=== PATIENT | male | born 1965 | race Caucasian/White ===

== ENCOUNTER → 2024-04-11 16:03 | Outpatient (REF) | payer OTHER, SELFPAY | LOC: RAD 16:03 | PROVIDERS: ATTENDING PHYSICIAN Family Medicine | DX: M25.512 Pain in left shoulder (principal) | CPT/HCPCS: 73030 ==

== ENCOUNTER → 2024-09-13 09:23 | Outpatient (REF) | payer OTHER, SELFPAY | LOC: RAD 09:23 | PROVIDERS: ATTENDING PHYSICIAN Family Medicine | DX: R06.02 Shortness of breath (principal) | CPT/HCPCS: 71046 ==

== ENCOUNTER 2024-09-15 16:27 | Emergency (ER) | payer OTHER, SELFPAY ==
[2024-09-15 16:33] VITALS: BP 131/81
--- NOTE | 2024-09-15 18:00 | ED.GENMED ---
History of Present Illness
General
Chief Complaint: Skin Problem
Time Seen by Provider: 09/15/24 17:36
History of Present Illness
History of Present Illness:
5-year-old male presenting with finger laceration. Patient states that he was washing a sketch maker knife and accidentally cut the distal aspect of his right pinky finger. Patient states he controlled bleeding with pressure, applying a string as a
tourniquet, and elevating above his head. Tetanus unknown. Patient reports slight numbness to the distal aspect of his finger but no weakness.
Past History
Past History
ED Past Medical History: Other (Cluster headaches), Other (Low back issues) and Other (GERD)
Social History
Tobacco: Former smoker
Alcohol: None
Personal:
Living: with family
Employment: Retired (In my [employer])
Family History
Family History: Negative Diabetes, Hypertension or CAD
Phy Exam
Physical Exam
Physical Exam:
Right hand: 2cm laceration to distal phalanx right 5th finger, no active bleeding. FROM right PIP and DIP. 2+ right radial pulse. neurovascularly intact
Course
Orders/Labs/Results
Orders:
Orders
09/15/24 18:05
Tetanus/Diphth/Acelpertussis [Adacel] 0.5 ml IM .ONCE ONE
Vital Signs
Initial and Last Documented VS:
Initial Vital Signs
Temp Pulse Resp BP Pulse Ox
98.1 F 92 20 131/81 99
09/15/24 16:33 09/15/24 16:33 09/15/24 16:33 09/15/24 16:33 09/15/24 16:33
Last Documented Vital Signs
Temp Pulse Resp BP Pulse Ox
98.1 F 92 20 131/81 99
09/15/24 16:33 09/15/24 16:33 09/15/24 16:33 09/15/24 16:33 09/15/24 16:33
Procedures
Laceration Closure
Right Distal Dorsal Fifth Finger:
Status of Wound: clean
Size of Wound in cm: 2
Description of Wound Edges: sharp
Preparation: cleaned with saline
Anesthesia: 1% Lidocaine
Revision/Debridement: routine- no revision
Type of Closure: single layer closure
Skin Closure Material: 5-0 nylon
Number of sutures: 4
Additional information:
applied topical antibiotic ointment and bandaid to wound
MDM/Problems Addressed
MDM/Problems Addressed:
59-year-old male presenting with right finger laceration. Updated tetanus, repaired laceration. No complications. Stable for discharge with PCP follow-up for suture removal
*Critical Care Note
Total Time (30-74mins, 75-104mins- exclusive of procedures): Not Applicable
ED Attending Note
-
Portions of this chart may have been created with voice recognition software.� Occasional wrong word or��sound alike� substitutions may have occurred due to the inherent limitations of voice recognition software.
Discharge Plan
Departure
Patient Disposition: Home (Routine Discharge)
Date of Disposition: 09/15/24
Time of Disposition: 18:05
Patient with high blood pressure during this ER visit?: Yes
Discharge Problem:
Finger laceration
Instructions: BLOOD PRESSURE
Prescriptions:
No Action
desloratadine [Clarinex] 5 MG tablet
5 mg PO DAILY
ondansetron 4 MG tablet,disintegrating
4 mg PO TIDPRN PRN (Reason: NAUSEA) Qty: 6 1RF
omeprazole 40 MG capsule,delayed release(DR/EC)
40 mg PO DAILY
zhrjcpvpmc-xsxarlvuzftfu-furg 1 EACH tablet
1 ea PO PRN PRN (Reason: headache-migraine,cluster)
hyoscyamine sulfate 0.125 MG tablet, sublingual
0.125 mg sublingual PRN PRN (Reason: stomache discomfort)
frovatriptan [Frova] 2.5 MG tablet
2.5 mg PO PRN PRN (Reason: headache)
diazepam 10 MG tablet
10 mg PO PRN PRN (Reason: anxiety)
oxycodone 5 MG tablet
5 mg PO Q4HPRN PRN (Reason: back pain)
tadalafil [Cialis] 10 MG tablet
10 mg PO PRN PRN (Reason: ed)
cholecalciferol (vitamin D3) [Vitamin D3] 2,000 UNIT capsule
2,000 unit PO DAILY
hydrocodone bitartrate [Hysingla ER] 60 MG tablet,oral only,ext.rel.24 hr
60 mg PO DAILY
amitriptyline 25 MG tablet
25 mg PO HS Qty: 30 0RF
promethazine 25 MG tablet
25 mg PO Q6HPRN PRN (Reason: nausea) Qty: 15 0RF
Referrals:
Tj España DO [Family Provider] -
Activity Restrictions/Additional Instructions:
Follow-up with primary care doctor, go to urgent care, or return to the emergency department in 1 week for suture removal. There are 4 black sutures that need to be removed
Keep area dry and clean for first 24 hours. Starting tomorrow you may wash area gently with soap and water. Do not soak. Apply topical antibiotic ointment and Band-Aid daily
Return to the emergency department sooner for new/worsening symptoms
Interventions
Interventions:
*Risk Screen - Suicide Last Done: 09/15/24 18:40
*General Assessment Last Done: 09/15/24 16:33
*Neglect/Abuse Screening Last Done: 09/15/24 18:40
*ED- Fall Risk Assessment Last Done: 09/15/24 18:40
*ED COVID-19 Vaccine History Last Done: 09/15/24 18:40
*Nursing Disposition Last Done: 09/15/24 18:34
ED-Skin Assessment Last Done: 09/15/24 18:32
Discharge Date and Time
Discharge Date/Time: 09/15/24 18:41
Print Language: BURUNDIAN
[2024-09-15] MEDS: ADACEL 0.5 ML IM (18:26)
== END 2024-09-15 18:41 | disposition home or self-care (01) ==
LOC: EMR 16:27
PROVIDERS: EMERGENCY PHYSICIAN Emergency Medicine; FAMILY PHYSICIAN Family Medicine
DX: S61.216A Laceration without foreign body of right little finger without damage to nail, initial encounter (principal); W26.0XXA Contact with knife, initial encounter; Z87.891 Personal history of nicotine dependence; Z23 Encounter for immunization
CPT/HCPCS: 12001; 90471; 99282; 90715

== ENCOUNTER → 2024-09-29 14:52 | Outpatient (REF) | payer OTHER, SELFPAY | LOC: HWRAD 14:52 | PROVIDERS: ATTENDING PHYSICIAN Family Medicine | DX: Z87.891 Personal history of nicotine dependence (principal) | CPT/HCPCS: 71271 ==

== ENCOUNTER → 2024-11-07 14:32 | Outpatient (REF) | payer SELFPAY | LOC: RAD 14:32 | PROVIDERS: ATTENDING PHYSICIAN Family Medicine | DX: Z13.6 Encounter for screening for cardiovascular disorders (principal) | CPT/HCPCS: 75571 ==

== ENCOUNTER 2024-11-10 18:04 | Observation (INO) | payer OTHER, SELFPAY ==
[2024-11-10 13:36] VITALS: BP 125/55
[2024-11-10 14:00] LABS: % Basophils 1.4 % (0-2); % Immature Granulocytes 0.2 % (0-0.5); % Lymphocytes 44.6 % (20.5-51.1); % Monocytes 5.7 % (1.7-9.3); % Neutrophils 46.1 % (42.2-75.2); Absolute Basophils 0.1 10^3/uL (0-0.2); Absolute Eosinophils 0.1 10^3/uL (0-0.7); Absolute Lymphocytes 2.2 10^3/uL (1.2-3.4); Absolute Monocytes 0.3 10^3/uL (0.1-0.6); Absolute Neutrophils 2.3 10^3/uL (1.4-6.5); Hematocrit 28.3 % (39.0-52.0); Hemoglobin 10.1 g/dL (13.0-18.0); Mean Corp Hgb Conc. 35.7 g/dL (33.0-37.0); Mean Corpuscular Hgb 38.8 pg (27.0-31.0); Mean Corpuscular Volume 108.8 fL (80.0-94.0); Mean Platelet Volume 9.8 fL (7.4-10.4); Nucleated Red Blood Cells % 0 % (-); Platelet Count 237 10^3/uL (130-400); Red Cell Dist. Width 16.7 % (11.5-14.5)
[2024-11-10 14:19] LABS: ALT (SGPT) 12 U/L (0-50); AST (SGOT) 19 U/L (17-59); Albumin 4.9 g/dl (3.5-5.0); Alkaline Phosphatase 37 U/L (38-126); Blood Urea Nitrogen 18 mg/dl (9-20); Calcium 9.4 mg/dl (8.4-10.2); Carbon Dioxide 25 mmol/L (22-30); Chloride 106 mmol/L (98-107); Glucose 120 mg/dl (70-99); Potassium 4.1 mmol/L (3.5-5.1); Sodium 140 mmol/L (135-145); Total Protein 7.2 g/dl (6.3-8.2); eGFR > 60.00
[2024-11-10 14:29] LABS: Troponin I < 0.012 ng/ml
[2024-11-10 16:15] VITALS: BP 118/65; BMI 23.9
--- NOTE | 2024-11-10 16:49 | ED.GENMED ---
History of Present Illness
General
Chief Complaint: Chest Pain
Source: patient
Exam Limitations: none
Time Seen by Provider: 11/10/24 15:44
History of Present Illness
History of Present Illness:
Since last evening patient has had intermittent episodes of left upper chest tightness with radiation of the shoulder. Not exertional. At times last seconds but at times last minutes. No shortness of breath radiation of the back nausea or
diaphoresis.
Past History
Past History
ED Past Medical History: COPD, Hypercholesterolemia, Other (Cluster headaches. Known anemia), Other (Low back issues) and Other (GERD)
Social History
Tobacco: Former smoker
Alcohol: None
Personal:
Living: with family
Employment: Retired (In [facility] [employer])
Family History
Family History: Negative Diabetes, Hypertension or CAD
Review of Systems
Review of Systems
All Other Systems: Not applicable
Respiratory: Reports no symptoms
ABD/GI: Reports no symptoms; Denies bloody stools or black stools
Phy Exam
Physical Exam
Physical Exam:
GENERAL: Alert and oriented in no apparent distress
EYE: Orbits normal.
NECK: Supple, no significant adenopathy.
ENT: Pharynx without erythema
CARDIAC: Regular rate and rhythm without any obvious murmurs.
LUNGS: Clear breath sounds,normal
ABDOMEN: Soft, without focal tenderness or distention
NEUROLOGICAL: Alert and oriented , grossly non-focal
SKIN: Warm and dry, no rash or lesion, no discoloration, skin intact.
MUSCULOSKELETAL: No edema,no deformity.Good color
PSYCH: Normal and appropriate interaction.
Scores
Heart Score for Chest Pain Patients
STEMI patient?: No
History: Moderately Suspicious
ECG: Normal
Age: >45 - <65 years
Risk Factors: >/= 3 Risk Factors or History of CAD
Troponin: </= Normal Limit
Heart Score for Chest Pain Patients: 4
Heart Score Risk: 20.3% MACE over next 6 weeks
Course
Orders/Labs/Results
Orders:
Orders
11/10/24 13:29
Electrocardiogram (*1) Urgent
Reason for Study: Chest Pain
EKG- Treatment ONCE
11/10/24 13:49
Complete Blood Count/With Diff Urgent
Comprehensive Metabolic Panel Urgent
Troponin I Urgent
Abnormal Lab Results
11/10/24
13:49
RBC 2.60 L 10^6/uL
(4.70-6.10)
Hgb 10.1 L g/dL
(13.0-18.0)
Hct 28.3 L %
(39.0-52.0)
MCV 108.8 H fL
(80.0-94.0)
MCH 38.8 H pg
(27.0-31.0)
RDW 16.7 H %
(11.5-14.5)
Glucose 120 H mg/dl
(70-99)
Total Bilirubin 2.0 H mg/dl
(0.2-1.3)
Alkaline Phosphatase 37 L U/L
(38-126)
11/10/24 13:49
11/10/24 13:49
Vital Signs
Initial and Last Documented VS:
Initial Vital Signs
Temp Pulse Resp BP Pulse Ox
98 F 84 16 125/55 95
11/10/24 13:36 11/10/24 13:36 11/10/24 13:36 11/10/24 13:36 11/10/24 13:36
Last Documented Vital Signs
Temp Pulse Resp BP Pulse Ox
98 F 60 9 118/65 97
11/10/24 13:36 11/10/24 16:15 11/10/24 16:15 11/10/24 16:15 11/10/24 16:17
*Pulse Oximetry
Patient hypoxic: no
*EKG
Interpreted by ED Provider?: Yes
Heart Rate: 91
Rate: normal
Rhythm: sinus
[place]: normal axis
Interval: normal interval
QRS Pattern: normal QRS
Ischemia: no ischemia
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
Rate: normal
Interpretation: normal
Heart Rate: 90
Rhythm: sinus
*Critical Care Note
Total Time (30-74mins, 75-104mins- exclusive of procedures): Not Applicable
Data Reviewed
Review of Other/Old Records Reveals: Labs and Records
ED Attending Note
-
Portions of this chart may have been created with voice recognition software.� Occasional wrong word or��sound alike� substitutions may have occurred due to the inherent limitations of voice recognition software.
Discharge Plan
Departure
Patient Disposition: Admit
Date of Disposition: 11/10/24
Time of Disposition: 16:51
Presentation/result/management discussed w/ accepting MD/DO: Hospitalist
Discharge Problem:
Recurrent chest pain, Anemia
Prescriptions:
No Action
desloratadine [Clarinex] 5 MG tablet
5 mg PO DAILY
ondansetron 4 MG tablet,disintegrating
4 mg PO TIDPRN PRN (Reason: NAUSEA) Qty: 6 1RF
omeprazole 40 MG capsule,delayed release(DR/EC)
40 mg PO DAILY
yilhtvivml-sqlkkznbihyfz-kioy 1 EACH tablet
1 ea PO PRN PRN (Reason: headache-migraine,cluster)
hyoscyamine sulfate 0.125 MG tablet, sublingual
0.125 mg sublingual PRN PRN (Reason: stomache discomfort)
frovatriptan [Frova] 2.5 MG tablet
2.5 mg PO PRN PRN (Reason: headache)
diazepam 10 MG tablet
10 mg PO PRN PRN (Reason: anxiety)
oxycodone 5 MG tablet
5 mg PO Q4HPRN PRN (Reason: back pain)
tadalafil [Cialis] 10 MG tablet
10 mg PO PRN PRN (Reason: ed)
cholecalciferol (vitamin D3) [Vitamin D3] 2,000 UNIT capsule
2,000 unit PO DAILY
hydrocodone bitartrate [Hysingla ER] 60 MG tablet,oral only,ext.rel.24 hr
60 mg PO DAILY
amitriptyline 25 MG tablet
25 mg PO HS Qty: 30 0RF
promethazine 25 MG tablet
25 mg PO Q6HPRN PRN (Reason: nausea) Qty: 15 0RF
Referrals:
Tj España DO [Family Provider] -
Interventions
Interventions:
*Risk Screen - Suicide Last Done: 11/10/24 13:36
*General Assessment Last Done: 11/10/24 16:17
*Neglect/Abuse Screening Last Done: 11/10/24 13:36
*ED- Fall Risk Assessment Last Done: 11/10/24 16:17
*ED COVID-19 Vaccine History Last Done: 11/10/24 16:17
ED- Cardiac Assessment Last Done: 11/10/24 16:17
Discharge Date and Time
Print Language: SLOVENIAN
--- NOTE | 2024-11-10 16:58 | HPS.HSE ---
Family Physician
-
Family Physician: Tj España, DO
Chief Complaint
-
Left-sided chest pain to left axilla
History of Present Illness
59-year-old male complaining of intermittent left upper chest squeezing sensation with radiation to his left shoulder since last evening on and off lasting a few seconds. He denies shortness of breath, nausea, or diaphoresis. Patient also denies
headache, fever, chills, palpitations, cough, shortness of breath, abdominal pain, nausea, vomiting, diarrhea, urinary symptoms, recent illness. The patient had history of a nuclear stress test 10/24/2014 with [facility] cardiology that was normal.
He has past medical history of COPD, active smoker, chronic marijuana joint use daily, HLD, cluster headaches, anxiety, chronic low back pain/herniated disks/ruptured disks on chronic opiates x 20 years, chronic constipation, GERD,, erectile
dysfunction.
Medical History
Past Medical History
Past Medical History: Reports Other
Additional Past Medical History:
COPD
HLD
Cluster headaches
Chronic low back pain/herniated disks on oral opiates x 20 years
GERD
Active smoker
Daily marijuana use
Anxiety
Chronic anemia
Chronic constipation
Seasonal allergies
Erectile dysfunction
Past Surgical History: Reports Other
Additional Past Surgical History:
Tonsillectomy
Social History
Tobacco: Smoker (3 to 4 cigarettes a day x 9 years prior 1 pack a day 30 years, daily marijuana joints)
Alcohol: None
Drug: Marijuana
Personal:
Living: With Family
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
Family History
Family History: Other (Maternal grandmother age 60 cardiac stents, bypass, CHF age 80, parents in their 80s estranged reported healthy, 2 sisters healthy)
Allergies / Home Medications
Allergies reflects when Allergies were last updated in [employer].
Home Medications with original date entered in [employer]
Allergy/Medication List:
Allergies
Allergy/AdvReac Type Severity Reaction Status Date / Time
pregabalin [From Lyrica] Allergy swelling Verified 11/10/24 17:46
of hands
and feet
Home Medications
desloratadine 5 mg tablet (Clarinex) 5 mg PO DAILY@0000 01/26/12
omeprazole 40 mg capsule,delayed release 40 mg PO DAILY@0000 06/11/15
albuterol sulfate 90 mcg/actuation aerosol inhaler 2 puff inhalation R Q6HPRN PRN sob 11/10/24
aspirin 81 mg tablet,delayed release 81 mg PO DAILY@0000 11/10/24
budesonide 160 mcg-glycopyr 9 mcg-formot 4.8 mcg/actuation HFA inhaler (Breztri Aerosphere) 2 inh inhalation R BID 11/10/24
buprenorphine HCl 450 mcg buccal film (Belbuca) 450 mcg buccal BID@1200,0000 11/10/24
naloxegol 25 mg tablet (Movantik) 25 mg PO DAILY@0000 11/10/24
oxycodone 10 mg tablet 10 mg PO QID@06,12,18,00 11/10/24
quetiapine 25 mg tablet (Seroquel) 25 mg PO TID 11/10/24
rosuvastatin 40 mg tablet (Crestor) 40 mg PO DAILY 11/10/24
varenicline tartrate 0.5 mg (11)-1 mg (42) tablets in a dose pack 0 ea PO PER PKG DIR 11/10/24
Review of Systems
-
History Source: Patient
A 12 point ROS was completed and negative except as noted: Yes
Constitutional: Reports Weight Loss (Recent 30 pounds due to changing his diet); Denies Fever, Fatigue or Chills
EENT: Denies Sore Throat or Runny Nose
Respiratory: Denies Cough or Trouble Breathing
Cardiac: Reports Chest Pain (Left breast to left axilla squeezing sensation); Denies Diaphoresis, Palpitations or Syncope
Abdomen/GI: Denies Abdominal Pain, Nausea, Vomiting, Diarrhea, Constipated, Bloody Stools or Black Stools
: Denies Dysuria, Frequency, Flank Pain, Incontinence, Difficulty Voiding, Urgency or Bleeding
Musculoskeletal: Denies Joint Pain or Edema
Skin: Denies Itching or Rash
Neurological: Denies Dizzy, Headache or Weakness
Endocrine: Reports No Symptoms
Hematologic/Lymphatic: Reports No Symptoms
Psych: Reports Calm
Physical Exam
Vital Signs
Vital Signs
Temp Pulse Resp BP Pulse Ox
98 F 60 9 118/65 97
11/10/24 13:36 11/10/24 16:15 11/10/24 16:15 11/10/24 16:15 11/10/24 16:17
Physical Exam
General: Comfortable, Conversant and Pain (On and off chest pain 3 out of 10 squeezing); No Fever or Chills
HEENT: NormoCephalic, Anicteric, Moist mucous membranes, PERRLA, [place] Conjunctivae and No Ptosis
Respiratory: Clear; No Wheezes, Rales or Rhonchi
Cardiac: S1/S2 and Regular Rhythm; No Murmur, Rub, Gallop or Peripheral Edema
Breast: Deferred by me
GI: Soft, Non Tender, Non Distended, Normal Bowel Sounds and No Hepatosplenomegaly
Rectal: Deferred by Provider
Genito-urinary: Deferred by me
Musculoskeletal: No Clubbing, No Cyanosis and No Edema
Skin: Warm and Dry; No Rash or Jaundice
Neuro: AO x 3, No Motor Deficits, Nonfocal/grossly intact, Cranial Nerves Intact and No Sensory Deficits; No Slurred Speech, Facial Droop, Tremors or Sedated
Psych: Calm
Laboratory Results
-
11/10/24 13:49
11/10/24 13:49
Laboratory Results
Total Bilirubin 2.0 mg/dl (0.2-1.3) H 11/10/24 13:49
AST 19 U/L (17-59) 11/10/24 13:49
ALT 12 U/L (0-50) 11/10/24 13:49
Alkaline Phosphatase 37 U/L (38-126) L 11/10/24 13:49
Troponin I < 0.012 ng/ml 11/10/24 13:49
Data Reviewed
-
Lab Data: Labs Reviewed by me
Impression/Plan
-
Impression/plan:
Observation telemetry
#Chest pain unclear etiology
Troponin < 0.012 will trend
-Check lipid profile
-Give aspirin 325 mg now, aspirin 81 mg daily
-Consult [facility] cardiology
EKG: NSR 91 bpm, QTc 386 otherwise normal
Nuclear stress test 10/24/2014 [facility] cardiology normal perfusion imaging normal systolic function ejection fraction 62%
#Chronic anemia macrocytic
Hgb 10, MCV 108.8-denies alcohol use
Check B12, folate, iron panel
#Anxiety with chronic marijuana use
- Patient smokes marijuana joints daily
#COPD�no acute exacerbation
#Chronic smoker nicotine 3 to 4 cigarettes/marijuana joints daily
Prior 30-year 1 pack a day
-Cessation advised
-Continue albuterol inhaler, Breztri inhaler 2 puffs twice daily
- Patient has prescription for Chantix although does not use is smoking marijuana daily for anxiety with no plans to stop
#HLD
- Check lipid profile
#Cluster headaches
#Chronic low back pain/herniated disks on oral opiates
- Continue Belbuca 450 mg buccal at 12 noon and midnight, oxycodone 10 mg every 6 hours 06, 12, 18, 12
#Chronic constipation
Patient uses Movantik 25 mg daily as needed
#GERD
-Continue omeprazole
Hx endoscopy 03/24/2023: Normal esophagus,
erythematous mucosa in the antrum biopsied
single gastric polyp resected and retrieved normal examined duodenum
#Anxiety
Patient reports uses marijuana joints daily
-Continue Seroquel 25 mg 3 times daily
#Seasonal allergies
-Continue Clarinex 5 mg daily
#Erectile dysfunction
- Hold Cialis
DVT prophylaxis
Subcu heparin
Full code
[2024-11-10 17:00] VITALS: BP 119/70
[2024-11-10] MEDS: ASPIRIN 325 MG PO (17:58)
[2024-11-10 18:36] LABS: Troponin I < 0.012 ng/ml
[2024-11-10 18:38] LABS: Iron 237 ug/dl (49-181)
[2024-11-10 18:47] LABS: Percent Saturation 93 % (20-50); Total Iron Binding Capacity 253 ug/dl (261-462)
[2024-11-10 19:00] VITALS: BP 123/61
--- NOTE | 2024-11-10 19:04 | W.PN.UPDATE ---
Update Note
Progress Note Update
This is an addendum to H&P written by Annel Jerez on 11/10/2024.� Patient seen examined independently with APPLICATION DEVELOPMENT INTERN.
59-year-old male past medical history of COPD, hyperlipidemia, cluster headaches, chronic low back pain, herniated disc, GERD, anxiety, smoker, marijuana use, anxiety, chronic anemia, constipation, seasonal allergies, erectile dysfunction,
presenting with left upper chest tightness with radiation to the shoulder.
Had negative stress test last year but recent calcium scoring was concerning for CAD.�
Vital signs normal.� EKG shows normal sinus rhythm.� First troponin negative.
Patient with chest pain unclear etiology.� Could be cardiac versus musculoskeletal.� Check A1c and lipid panel.� Trend troponins.� Cardiology consulted.
[2024-11-10 19:28] LABS: Vitamin B12 603 pg/ml (239-931)
[2024-11-10] MEDS: ROXICODONE 10 MG PO (19:55)
[2024-11-10 21:03] VITALS: BMI 23.7
[2024-11-10 21:04] VITALS: BP 141/81
[2024-11-10] MEDS: HEPARIN 5000 UNITS SC (22:33)
[2024-11-10 23:32] VITALS: BP 137/68
[2024-11-11] MEDS: ROXICODONE 10 MG PO ×3 (00:44→11:34)
[2024-11-11] MEDS: PROTONIX 40 MG PO (00:45)
[2024-11-11] MEDS: ASPIR LOW (ENTERIC COATED) 81 MG PO (00:45)
[2024-11-11] MEDS: SEROQUEL 50 MG PO (00:45)
[2024-11-11] MEDS: CLARITIN 10 MG PO (00:45)
[2024-11-11 01:47] LABS: Troponin I < 0.012 ng/ml
[2024-11-11] MEDS: NON-FORMULARY ITEM 450 MCG BUCCAL ×2 (02:30→11:33)
[2024-11-11] MEDS: NON-FORMULARY ITEM 25 MG PO (02:32)
[2024-11-11 03:14] VITALS: BP 107/67
[2024-11-11 06:59] LABS: % Basophils 1.2 % (0-2); % Eosinophils 2.1 % (0-6); % Immature Granulocytes 0.2 % (0-0.5); % Monocytes 5.2 % (1.7-9.3); % Neutrophils 41.3 % (42.2-75.2); Absolute Basophils 0.1 10^3/uL (0-0.2); Absolute Eosinophils 0.1 10^3/uL (0-0.7); Absolute Lymphocytes 2.6 10^3/uL (1.2-3.4); Absolute Monocytes 0.3 10^3/uL (0.1-0.6); Absolute Neutrophils 2.1 10^3/uL (1.4-6.5); Hematocrit 26.7 % (39.0-52.0); Hemoglobin 9.3 g/dL (13.0-18.0); Mean Corp Hgb Conc. 34.8 g/dL (33.0-37.0); Mean Corpuscular Hgb 38.6 pg (27.0-31.0); Mean Corpuscular Volume 110.8 fL (80.0-94.0); Mean Platelet Volume 10.1 fL (7.4-10.4); Nucleated Red Blood Cells % 0 % (-); Platelet Count 214 10^3/uL (130-400); Red Blood Cell Count 2.41 10^6/uL (4.70-6.10); Red Cell Dist. Width 16.7 % (11.5-14.5); White Blood Cell Count 5.2 10^3/uL (4.8-10.8)
[2024-11-11 07:28] LABS: ALT (SGPT) < 10 U/L (0-50); AST (SGOT) 16 U/L (17-59); Albumin 3.8 g/dl (3.5-5.0); Alkaline Phosphatase 36 U/L (38-126); Blood Urea Nitrogen 18 mg/dl (9-20); Calcium 9.2 mg/dl (8.4-10.2); Carbon Dioxide 27 mmol/L (22-30); Chloride 108 mmol/L (98-107); Estimated Creatinine Clearance 96 ml/min; Glucose 100 mg/dl (70-99); HDL Cholesterol 61 mg/dl; LDL Cholesterol, Calculated 73 mg/dl; Potassium 4.2 mmol/L (3.5-5.1); Sodium 138 mmol/L (135-145); Total Bilirubin 1.9 mg/dl (0.2-1.3); Total Cholesterol 146 mg/dl (50-199); Triglyceride 63 mg/dl (10-149); Very Low Density Lipoprotein 12 mg/dl (0-30); eGFR > 60.00
[2024-11-11 07:30] VITALS: BP 121/67
[2024-11-11] MEDS: NON-FORMULARY ITEM 2 INH INH (07:45)
[2024-11-11] MEDS: HEPARIN 5000 UNITS SC (08:09)
[2024-11-11] MEDS: CRESTOR 40 MG PO (08:09)
--- NOTE | 2024-11-11 10:13 | CON.CAR ---
Addendum entered and electronically signed by Gavin Arambula MD 11/11/24 14:58:
I saw and examined the patient.
The BAR MANAGER's note was reviewed and I agree with the note.
Comment: CP does not seem to be of ischemic etiology. Trop and ekgs are negative. OK for home with plans for stress test. Goal LDL at least less than 55. ASA reasonable. Does he need to see hematology as outpatient for his significant macrocytic
anemia? [facility] about cardiac plans and anemia question to Dr. Black. We will sign off and arrange followup.
Original Note:
Consultation
Consultation Request
Date/Time Consultation Requested: 11/10/2024 18:30
Date/Time Consultation Performed: 12/08/2024 10:15
Requesting Provider: TERI vOalles
Performing Provider: TERI Tejeda for Dr. Arambula
Reason for Consultation: Chest pain
Medical History
-
Chief Complaint: Chest pain
History of Present Illness:
Elmer Altman is a 59-year-old male (establishing care with Dr. Mota), with chronic opioid dependence, opioid induced constipation, GERD, current smoker, and elevated coronary artery calcium score presented to the emergency department with a
chief complaint of chest pain. His chest pain started on , 11/09/2024. It was intermittent. It was always at rest. Nothing made it better or worse. It would last approximately 10 seconds and spontaneously resolved. He had no associated
complaints of shortness of breath, diaphoresis, nor nausea. He has been chest pain-free since arrival to the emergency room.
He had a coronary calcium scoring CT scan on 11/07/2024 which was elevated.
Past Medical History
Past Medical History: GERD and Other (Elevated coronary artery calcium score, opioid dependence due to chronic pain, opioid-induced constipation)
Past Surgical History: Tonsilectomy
Social History
Tobacco: Smoker
Alcohol: None
Drug: Marijuana (Smoking)
Personal:
Living: With Family
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
Family History
Family History: CAD (Grandmother with CAD at the age of 60.)
Allergies / Home Medications
Allergy/AdvReac Type Severity Reaction Status Date / Time
pregabalin [From Lyrica] Allergy swelling Verified 11/10/24 17:46
of hands
and feet
�Medication �Instructions �Recorded �Confirmed �Type
desloratadine 5 mg tablet 5 mg PO DAILY@01/26/12 11/10/24 History
(Clarinex)
omeprazole 40 mg capsule,delayed 40 mg PO DAILY@06/11/15 11/10/24 History
release
albuterol sulfate 90 mcg/actuation 2 puff inhalation R Q6HPRN PRN sob 11/10/24 11/10/24 History
aerosol inhaler
aspirin 81 mg tablet,delayed 81 mg PO DAILY@11/10/24 11/10/24 History
release
budesonide 160 mcg-glycopyr 9 2 inh inhalation R BID 11/10/24 11/10/24 History
mcg-formot 4.8 mcg/actuation HFA
inhaler (Breztri Aerosphere)
buprenorphine HCl 450 mcg buccal 450 mcg buccal BID@1200,0000 11/10/24 11/10/24 History
film (Belbuca)
naloxegol 25 mg tablet (Movantik) 25 mg PO DAILY@11/10/24 11/10/24 History
oxycodone 10 mg tablet 10 mg PO QID@06,12,18,00 11/10/24 11/10/24 History
quetiapine 25 mg tablet (Seroquel) 50 mg PO 0000 11/10/24 11/10/24 History
rosuvastatin 40 mg tablet (Crestor) 40 mg PO DAILY 11/10/24 11/10/24 History
varenicline tartrate 0.5 mg (11)-1 0 ea PO PER PKG DIR 11/10/24 11/10/24 History
mg (42) tablets in a dose pack
Review of Systems
-
All other systems: Negative unless noted
Constitutional: No Symptoms
EENT: No Symptoms
Respiratory: No Symptoms
Cardiac: No Symptoms
Abdomen/GI: No Symptoms
: No Symptoms
Musculoskeletal: No Symptoms
Skin: No Symptoms
Neurological: No Symptoms
Endocrine: No Symptoms
Hematologic/Lymphatic: No Symptoms
Physical Exam
Vital Signs
Temp Pulse Resp BP Pulse Ox
97.8 F 92 16 121/67 96
11/11/24 07:30 11/11/24 07:51 11/11/24 07:51 11/11/24 07:30 11/11/24 08:26
Lab Results
11/11/24 06:41
11/11/24 06:41
Troponin I < 0.012 ng/ml 11/11/24 00:58
Physical Exam
General: Well Developed, Well Nourished, No Apparent Distress and Comfortable
HEENT: Normocephalic, Anicteric and Moist Mucous Membranes
Respiratory: Clear and Non Labored Respirations
Cardiac: S1/S2 and Regular Rhythm; Negative Peripheral Edema
Breast: Deferred by me
GI: Soft, Non Tender, Non Distended and Normal Bowel Sounds
Rectal: Deferred by Provider
Genito-urinary: No Costovertebral Tender
Musculoskeletal: No Clubbing
Skin: Warm and Dry
Neuro: AO x 3
Hematologic/Lymphatic: No Lymphadenopathy
Psych: Calm
Impression / Plan
-
I/P: 59M with chronic opioid dependence, opioid induced constipation, GERD, current smoker, and elevated coronary artery calcium score presented to the emergency department with a chief complaint of chest pain.
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 Mota
Chest pain
- Intermittent episodes of left anterior chest pain with radiation into the axilla lasting for seconds with spontaneous resolution
- No associated symptoms of shortness of breath, back pain, nausea, no diaphoresis
- EKG in the ER stable, obtain updated EKG
- Troponin <0.012 x 3
Elevated coronary artery calcium score
- Total score 2544.31 (LM 14.98, LAD 1545.43, LCx 185.27, RCA 78.63)
- Continue aspirin and statin
- Smoking cessation education given at the bedside
Dyslipidemia
- TC 146, LDL 73, HDL 61, TG 63
- Continue rosuvastatin 40 mg, recently started, goal LDL < 55
Fasting hyperglycemia, HgbA1c pending
Chronic pain with opioid dependence
Opioid-induced constipation
GERD
COPD, stable without acute exacerbation
Current smoker, both tobacco and marijuana, smoking cessation recommended
Data Reviewed
-
EKG: Report Reviewed by me (Sinus rhythm, rate 91)
Labs: Labs Reviewed by me
Old Records: Reviewed
[2024-11-11 11:30] VITALS: BP 148/70
[2024-11-11 11:44] LABS: Folate 2.4 ng/ml (2.76-20)
--- NOTE | 2024-11-11 11:50 | CM ---
Patient seen at bedside
IA Completed
Dx: chest pain unclear etiology
PMH: COPD, hyperlipidemia, cluster headaches, chronic low back pain, herniated disc, GERD, anxiety, smoker, marijuana use, anxiety, chronic anemia, constipation
Lives in a 2 story home with his , 1st floor bedroom & bathroom, no steps to enter
PLOF: Independent, uses a cane occasionally
DME: walker, cane, wheelchair, shower chair,oxygen prn for cluster headaches ([employer])
Denies VN/ Has had outpatient PT for his back
PCP: Tj España
Pharmacy: [facility]
Plan: home, currently no needs, CM to continue to follow
[2024-11-11 14:00] LABS: Glycohemoglobin (HgbA1c) 4.7 % (4.0-5.6)
[2024-11-11 15:30] VITALS: BP 123/57
--- NOTE | 2024-11-11 15:43 | W.PN.HOSP.TC ---
Today's Communication/Plan
-
dc now
Assessment / Plan
Assessment / Plan
Chest pain unclear etiology
Troponin < 0.012 x3
-Give aspirin 325 mg now, aspirin 81 mg daily
-Consult CBC cardiology
EKG: NSR 91 bpm, QTc 386 otherwise normal
Nuclear stress test 10/24/2014 CBC cardiology normal perfusion imaging normal systolic function ejection fraction 62%
#Chronic anemia macrocytic
Hgb 10, MCV 108.8-denies alcohol use
folate low at 2.4,
#Anxiety with chronic marijuana use
- Patient smokes marijuana joints daily
#COPD�no acute exacerbation
#Chronic smoker nicotine 3 to 4 cigarettes/marijuana joints daily
Prior 30-year 1 pack a day
-Cessation advised
-Continue albuterol inhaler, Breztri inhaler 2 puffs twice daily
- Patient has prescription for Chantix although does not use is smoking marijuana daily for anxiety with no plans to stop
#HLD
- Check lipid profile
#Cluster headaches
#Chronic low back pain/herniated disks on oral opiates
- Continue Belbuca 450 mg buccal at 12 noon and midnight, oxycodone 10 mg every 6 hours 06, 12, 18, 12
#Chronic constipation
Patient uses Movantik 25 mg daily as needed
#GERD
-Continue omeprazole
Hx endoscopy 03/24/2023: Normal esophagus,
erythematous mucosa in the antrum biopsied
single gastric polyp resected and retrieved normal examined duodenum
#Anxiety
Patient reports uses marijuana joints daily
-Continue Seroquel 25 mg 3 times daily
#Seasonal allergies
-Continue Clarinex 5 mg daily
#Erectile dysfunction
DVT prophylaxis
Subcu heparin
Full code
dc to home
Cleared by cardio
see dictated note
Anticipated Discharge: Today
Subjective/Interval History
-
Date of Service: November 11, 2024
Feels well and wants to go home, cleared by cardio to go home
Objective Data
-
Labs:
Laboratory Results
11/11/24
06:41
WBC 5.2
Hgb 9.3 L
Hct 26.7 L
Plt Count 214
Sodium 138
Potassium 4.2
Chloride 108 H
Carbon Dioxide 27
BUN 18
Creatinine 0.9
Glucose 100 H
Calcium 9.2
Total Bilirubin 1.9 H
AST 16 L
ALT < 10
Alkaline Phosphatase 36 L
Vital Signs:
Vital Signs
Temp Pulse Resp BP Pulse Ox
98.0 F 87 16 148/70 98
11/11/24 11:30 11/11/24 11:30 11/11/24 11:30 11/11/24 11:30 11/11/24 11:30
Review of Systems
-
History Source: Patient, Physician and Coordinated Provider
Constitutional: Reports No Symptoms
EENT: Reports No Symptoms Reported
Respiratory: Reports No Symptoms
Cardiac: Denies Chest Pain (none today)
Abdomen/GI: Reports No Symptoms
Genitourinary: Reports No Symptoms
Physical Exam
-
General: Well Developed, Well Nourished and No Apparent Distress
HEENT: Normocephalic, Atraumatic and Moist Mucous Membranes
Respiratory: Clear to Auscultation; Negative Wheezes, Rales or Rhonchi
Cardiac: S1/S2
GI: Soft, Nontender and Nondistended
Musculoskeletal: No Clubbing, No Cyanosis and No Edema
--- NOTE | 2024-11-12 19:11 | W.DS.TRANS ---
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
-
Discharge Instructions:
Discharge Diagnosis/Procedures Chest Pain
Diet Regular
Activity No strenuous activity
Driving Restrictions As prior to admission
Bathing Restrictions None
Others Tests The cardiology office will call you to schedule
an echocardiogram and stress echo.
Instructions:
Stand-Alone Forms:
Changes to Home Medications: Yes
Discharge Medications:
DC Medications w/original date entered in [facility]
desloratadine 5 mg tablet (Clarinex) 5 mg PO DAILY@0000 01/26/12
omeprazole 40 mg capsule,delayed release 40 mg PO DAILY@0000 06/11/15
albuterol sulfate 90 mcg/actuation aerosol inhaler 2 puff inhalation R [id number] PRN sob 11/10/24
aspirin 81 mg tablet,delayed release 81 mg PO DAILY@0000 11/10/24
budesonide 160 mcg-glycopyr 9 mcg-formot 4.8 mcg/actuation HFA inhaler (Breztri Aerosphere) 2 inh inhalation R BID 11/10/24
buprenorphine HCl 450 mcg buccal film (Belbuca) 450 mcg buccal BID@1200,0000 11/10/24
naloxegol 25 mg tablet (Movantik) 25 mg PO DAILY@0000 11/10/24
oxycodone 10 mg tablet 10 mg PO QID@06,12,18,00 11/10/24
quetiapine 25 mg tablet (Seroquel) 50 mg PO 0000 11/10/24
rosuvastatin 40 mg tablet (Crestor) 40 mg PO DAILY 11/10/24
varenicline tartrate 0.5 mg (11)-1 mg (42) tablets in a dose pack 0 ea PO PER PKG DIR 11/10/24
folic acid 5 mg-vitamin B complex with C no.17 tablet 1 tab PO DAILY #90 tabs 11/11/24
Home Medication Changes
Folic Acid B complex vitamin added
Pending Results: No
[2024-11-13 18:57] LABS: Hepatitis C Antibody Negative (Negative)
== END 2024-11-11 16:19 | disposition home or self-care (01) ==
LOC: 3 WEST ACU 18:04
PROVIDERS: Clinical Nurse Specialist Family Health; Emergency Medicine; ADMITTING PHYSICIAN Hospitalist; ATTENDING PHYSICIAN Internal Medicine; CONSULT PHYSICIAN Internal Medicine Cardiovascular Disease; EMERGENCY PHYSICIAN Emergency Medicine; FAMILY PHYSICIAN Family Medicine
DX: R07.89 Other chest pain (principal); F17.210 Nicotine dependence, cigarettes, uncomplicated; F12.90 Cannabis use, unspecified, uncomplicated; Z79.82 Long term (current) use of aspirin; D53.9 Nutritional anemia, unspecified; J44.9 Chronic obstructive pulmonary disease, unspecified; K59.09 Other constipation; K21.9 Gastro-esophageal reflux disease without esophagitis; F41.9 Anxiety disorder, unspecified; J30.2 Other seasonal allergic rhinitis; N52.9 Male erectile dysfunction, unspecified; Z79.899 Other long term (current) drug therapy; F11.20 Opioid dependence, uncomplicated; G89.29 Other chronic pain
CPT/HCPCS: 80053; 80061; 82607; 82728; 82746; 83036; 83540; 83550; 84484; 85025; 86803; 93005; 94640; 99284; G0378

== ENCOUNTER → 2024-11-15 12:45 | Outpatient (REF) | payer OTHER, SELFPAY | LOC: RCS 12:45 | PROVIDERS: ATTENDING PHYSICIAN Nurse Practitioner Gerontology; FAMILY PHYSICIAN Family Medicine; OTHER PHYSICIAN Internal Medicine Cardiovascular Disease | DX: R93.1 Abnormal findings on diagnostic imaging of heart and coronary circulation (principal); R07.9 Chest pain, unspecified | CPT/HCPCS: 93017; 93350 ==

== ENCOUNTER → 2024-11-23 14:53 | Outpatient (REF) | payer OTHER, SELFPAY | LOC: HWRCS 14:53 | PROVIDERS: ATTENDING PHYSICIAN Nurse Practitioner Gerontology; FAMILY PHYSICIAN Family Medicine | DX: R93.1 Abnormal findings on diagnostic imaging of heart and coronary circulation (principal); R07.9 Chest pain, unspecified | CPT/HCPCS: 93306 ==